=== PATIENT | female | born 1970 | race Caucasian/White ===

== ENCOUNTER 2025-05-02 08:25 | Emergency (ER) | payer OTHER ==
[~2025-05-02] VITALS: Ht 170.2 cm; Wt 68.0 kg
[2025-05-02 08:30] VITALS: PULSE 103; RESP 17; TEMP 98.3; O2SAT 97
[2025-05-02] MEDS: METHYLPREDNISOLONE SOD SUCC 125 MG/2ML VIAL IM ONE (09:11)
[2025-05-02] MEDS: KETOROLAC TROMETHAMINE 60 MG/2 ML VIAL IM ONE (09:11)
[2025-05-02] MEDS ORDERED: NAPROSYN500 MG PO (11:06)
== END 2025-05-02 11:54 | disposition home or self-care (01) ==
LOC: ER 08:32
DX: S52.591A Other fractures of lower end of right radius, initial encounter for closed fracture (principal); W01.0XXA Fall on same level from slipping, tripping and stumbling without subsequent striking against object, initial encounter; Y93.01 Activity, walking, marching and hiking; Y92.89 Other specified places as the place of occurrence of the external cause; F32.A Depression, unspecified; Z85.3 Personal history of malignant neoplasm of breast
CPT/HCPCS: 29125; 73090; 73110; 99282; J1885; J2919